=== PATIENT | male | born 1990 | race African-American/Black ===

== ENCOUNTER 2022-08-13 13:03 | Emergency (ER) | payer SELFPAY ==
[~2022-08-13] VITALS: Ht 167.6 cm; Wt 87.1 kg
[2022-08-13 13:36] VITALS: BP 141/89
[2022-08-13 15:00] VITALS: BP 126/78
--- NOTE | 2022-08-13 15:00 | NUR ---
Patient discharged with v/s stable. Written and verbal after care instructions FOR GONORRHEA AND CLAMYDIA TEST given and explained. Patient verbalized understanding. Ambulatory with steady gait. All questions addressed prior to discharge. Advised to follow up with PMD.
== END 2022-08-13 15:00 | disposition home or self-care (01) ==
LOC: MED 13:03
DX: Z11.3 Encounter for screening for infections with a predominantly sexual mode of transmission (principal); F17.210 Nicotine dependence, cigarettes, uncomplicated
CPT/HCPCS: 81002; 87491; 99283